=== PATIENT | female | born 1985 | race Caucasian/White ===

== ENCOUNTER 2017-02-24 20:56 | Emergency (ER) | payer MEDICAID, OTHER ==
[~2017-02-24] VITALS: Ht 167.6 cm; Wt 78.5 kg
[2017-02-24 21:18] VITALS: BP 118/63
--- NOTE | 2017-02-24 22:01 | NUR ---
Patient ambulated to bed 05.
--- NOTE | 2017-02-24 22:05 | NUR ---
PATIENT PRESENTS TO ED WITH ABCESS ON CHIN AND VAGINAL AREA. LAST LMP ON 01/21/17 . PT STATES SHE HAS BEEN HAVING N/V/D X 1 WEEK;; AAOX4 WITH EVEN AND STEADY GAIT; LUNGS CLEAR BL; HR EVEN AND REGULAR; PT DENIES ANY FEVER, CP, SOB, OR COUGH AT THIS TIME; PATIENT STATES PAIN OF 9/10 AT THIS TIME; VSS; PATIENT POSITIONED FOR COMFORT; HOB ELEVATED; BEDRAILS UP X2; BED DOWN. ER MD MADE AWARE OF PT STATUS.
--- NOTE | 2017-02-24 22:20 | NUR ---
Patient being evaluated by physician DR SOUSA at bedside.
[2017-02-24] MEDS ORDERED: LIDOCAINE 1% 500 MG/50 ML VIAL INJ ONE (22:30)
[2017-02-24 22:51] VITALS: BP 114/68
--- NOTE | 2017-02-24 22:51 | NUR ---
Patient discharged with v/s stable. Written and verbal after care instructions given and explained. Patient alert, oriented and verbalized understanding of instructions. Ambulatory with steady gait. All questions addressed prior to discharge. ID band removed. Patient advised to follow up with PMD. Rx of CLEOCIN 300MG AND MOTRIN 800MG given. Patient educated on indication of medication including possible reaction and side effects. Opportunity to ask questions provided and answered.
== END 2017-02-24 22:51 | disposition home or self-care (01) ==
LOC: MED 20:56
DX: L02.01 Cutaneous abscess of face (principal); N76.4 Abscess of vulva; J44.9 Chronic obstructive pulmonary disease, unspecified; Z88.0 Allergy status to penicillin
CPT/HCPCS: 10060; 36415; 81002; 81025; 84702; 99283; J2001